=== PATIENT | female | born 1975 | race Two or more races ===

== ENCOUNTER 2020-03-07 07:17 | Emergency (ER) | payer MEDICARE ==
[~2020-03-07] VITALS: Ht 162.6 cm; Wt 104.3 kg
[2020-03-07 07:21] VITALS: BP 106/70
--- NOTE | 2020-03-07 07:26 | Emergency Room Report ---
History of Present Illness General Chief Complaint: Chest Pain Source: Patient Present Illness HPI The patient presents with substernal chest pain. Began this morning. It was severe and central chest radiating to her back. She had this 1 time before when she had some obstruction of her esophagus. She had taken some coconut water this morning and also some Tylenol with codeine for cramps. She is on her cycle at this time. She is scheduled to undergo hysterectomy next Friday. She has cramps and heavy bleeding. Paramedics treated her with one spray of nitroglycerin. The pain is now reduced to 2/10. She denies fevers, chills, sore throat, cough, nausea, vomiting or diarrhea. Last year she had an evaluation of her heart with a treadmill stress test. He said that there was some anomaly with the circulation in her heart however this was not done by angiogram. She says that the treadmill went well and she was told she did not have risk of cardiac injury. She denies exposure to COVID-19 positive contacts. No palpitations, dysuria, abdominal pain, shortness of breath, joint pain, rashes, depression, anxiety, visual changes, dizziness, headache. Allergies: Coded Allergies: No Known Allergies (Unverified , 03/07/20) COVID-19 Screening Contact w/high risk pt: No Experienced COVID-19 symptoms?: No COVID-19 Testing performed RESEARCH SPECIALIST: No Patient History Past Medical History: see triage record Past Surgical History: other - gastric sleeve surgery Social History: Denies: smoking, alcohol use, drug use Social History Narrative From home lives with her son and other relatives Last Menstrual Period: 03/05/2020 Reviewed Nursing Documentation: PMH: Agreed; PSxH: Agreed Nursing Documentation-PMH Past Medical History: No History, Except For Hx Asthma: Yes Review of Systems All Other Systems: negative except mentioned in HPI Physical Exam Vital Signs Date Time Temp Pulse Resp B/P (MAP) Pulse Ox O2 Delivery O2 Flow Rate FiO2 03/07/20 07:11 97.5 70 16 140/80 (100) 98 Room Air Sp02 EP Interpretation: reviewed, normal General Appearance: well appearing, no apparent distress, GCS 15 Head: normocephalic Eyes: bilateral eye normal inspection, bilateral eye PERRL, bilateral eye EOMI ENT: other - Wearing a mask Neck: supple Respiratory: lungs clear, normal breath sounds Cardiovascular #1: regular rate, rhythm, no edema Cardiovascular #2: 2+ radial (R) Gastrointestinal: normal inspection, normal bowel sounds, non tender, no mass, non-distended Musculoskeletal: back normal, normal range of motion, no calf tenderness, gait/station normal Neurologic: alert, oriented x3, grossly normal Psychiatric: mood/affect normal Skin: no rash, warm/dry Medical Decision Making Diagnostic Impression: Primary Impression: Chest pain ER Course Patient presents with substernal chest pain was severe until treated by EMS. Differential includes Prinzmetal angina, angina, acute myocardial infarction, pulmonary embolus, esophageal spasm, reflux esophagitis, thoracic aneurysm amongst others. Patient has few risk factors for cardiac disease. Also vital signs preclude pulmonary embolus. Lack of hypertension and marfanoid habitus makes aneurysm less likely. Evaluation with EKG and labs. Patient treated with Mylanta, and Pepcid. Patient placed on the manager cardiac cath. EKG sinus rhythm [address]-T wave changes. Chest x-ray normal no infi ltrates. Labs normal with normal troponin. Patient improved with treatment in the emergency department. She states that she had purchased Pepcid but had not taken any in the past. Discussed results with patient. Discussed treatment plan. No emergency at this time and patient improved. Patient stable for outpatient observation and treatment. Laboratory Tests Test 03/07/20 07:20 03/07/20 07:45 White Blood Count 6.4 K/UL (4.8-10.8) Red Blood Count 4.51 M/UL (4.20-5.40) Hemoglobin 11.2 G/DL (12.0-16.0) L Hematocrit 35.3 % (37.0-47.0) L Mean Corpuscular Volume 78 FL (80-99) L Mean Corpuscular Hemoglobin 24.7 PG (27.0-31.0) L Mean Corpuscular Hemoglobin Concent 31.6 G/DL (32.0-36.0) L Red Cell Distribution Width 13.2 % (11.6-14.8) Platelet Count 281 K/UL (150-450) Mean Platelet Volume 6.2 FL (6.5-10.1) L Neutrophils (%) (Auto) 56.6 % (45.0-75.0) Lymphocytes (%) (Auto) 29.8 % (20.0-45.0) Monocytes (%) (Auto) 8.0 % (1.0-10.0) Eosinophils (%) (Auto) 3.4 % (0.0-3.0) H Basophils (%) (Auto) 2.1 % (0.0-2.0) H Prothrombin Time 10.8 SEC (9.30-11.50) Prothrombin Time INR 1.0 (0.9-1.1) Activated Partial Thromboplast Time 27 SEC (23-33) Sodium Level 137 MMOL/L (136-145) Potassium Level 4.6 MMOL/L (3.5-5.1) Chloride Level 105 MMOL/L (98-107) Carbon Dioxide Level 24 MMOL/L (21-32) Anion Gap 8 mmol/L (5-15) Blood Urea Nitrogen 14 mg/dL (7-18) Creatinine 0.7 MG/DL (0.55-1.30) Estimated Glomerular Filtration Rate > 60 mL/min (>60) Glucose Level 97 MG/DL (74-106) Calcium Level 8.8 MG/DL (8.5-10.1) Total Bilirubin 0.4 MG/DL (0.2-1.0) Aspartate Amino Transferase (AST) 66 U/L (15-37) H Alanine Aminotransferase (ALT) 32 U/L (12-78) Alkaline Phosphatase 99 U/L (46-116) Total Creatine Kinase 143 U/L (26-308) Troponin I 0.000 ng/mL (0.000-0.056) Pro-B-Type Natriuretic Peptide 58 pg/mL (0-125) Total Protein 6.7 G/DL (6.4-8.2) Albumin 3.3 G/DL (3.4-5.0) L Globulin 3.4 g/dL Albumin/Globulin Ratio 1.0 (1.0-2.7) Urine Color Yellow Urine Appearance Slightly cloudy Urine pH 6 (4.5-8.0) Urine Specific [place] 1.015 (1.005-1.035) Urine Protein 1+ (NEGATIVE) H Urine Glucose (UA) Negative (NEGATIVE) Urine Ketones 1+ (NEGATIVE) H Urine Blood 5+ (NEGATIVE) H Urine Nitrite Negative (NEGATIVE) Urine Bilirubin Negative (NEGATIVE) Urine Urobilinogen Normal MG/DL (0.0-1.0) Urine Leukocyte Esterase 1+ (NEGATIVE) H Urine RBC 30-40 /HPF (0 - 2) H Urine WBC 2-4 /HPF (0 - 2) Urine Squamous Epithelial Cells Few /LPF (NONE/OCC) Urine Bacteria Few /HPF (NONE) Urine Mucus Moderate /LPF (NONE/OCC) H Urine HCG, Qualitative Negative (NEGATIVE) EKG Diagnostic Results Rate: normal Rhythm: NSR ST Segments: no acute changes Rhythm Strip Diag. Results EP Interpretation: yes Rhythm: NSR, no PVC's, no ectopy Chest X-Ray Diagnostic Results Chest X-Ray Diagnostic Results : Chest X-Ray Ordered: Yes # of Views/Limited/Complete: 1 View Indication: Chest Pain EP Interpretation: Yes Interpretation: no consolidation, no effusion, no pneumothorax Impression: No acute disease Electronically Signed by: Electronically signed by Noel Mejía MD Last Vital Signs Date Time Temp Pulse Resp B/P (MAP) Pulse Ox O2 Delivery O2 Flow Rate FiO2 03/07/20 09:41 97.5 68 15 106/70 100 Room Air Status: improved Disposition: HOME, SELF-CARE Condition: Improved Scripts Mag Hydrox/Aluminum Hyd/Simeth (Mylanta Maximum Strength Liq) 355 Ml Oral.susp 30 ML PO Q6HR, #240 ML Prov: Noel Mejía MD 03/07/20 Famotidine* (Pepcid 20mg tablet*) 20 Mg Tablet 20 MG ORAL DAILY, #30 TAB 0 Refills Prov: Noel Mejía MD 03/07/20 Noel Mejía MD Mar 07, 2020 07:26
[2020-03-07] MEDS ORDERED: Mylanta II UD 30ml ORAL ONE (07:30)
--- NOTE | 2020-03-07 07:35 | NUR ---
ED Nurse Note: Collected blood specimen then sent.
--- NOTE | 2020-03-07 07:40 | NUR ---
ED Nurse Note: Patient from home and was brought in by [facility] due to CP with dizziness that radiates to her left shoulder and back started while she was cooking this morning. Pt states pressure like pain on her chest that was relived by NTG x1 given by EMS en route. AAO x4, ambulatory with non labored breathing. Calm and speaks in clear sentences.
[2020-03-07 07:43] LABS: BASOPHILS % (AUTO) 2.1 % (0.0-2.0); EOSINOPHILS % (AUTO) 3.4 % (0.0-3.0); HEMATOCRIT 35.3 % (37.0-47.0); HEMOGLOBIN 11.2 G/DL (12.0-16.0); LYMPHOCYTES % (AUTO) 29.8 % (20.0-45.0); MEAN CORPUSCULAR VOLUME 78 FL (80-99); NEUTROPHILS % (AUTO) 56.6 % (45.0-75.0); PLATELET COUNT 281 K/UL (150-450); RED BLOOD COUNT 4.51 M/UL (4.20-5.40); RED CELL DISTRIBUTION WIDTH 13.2 % (11.6-14.8); WHITE BLOOD COUNT 6.4 K/UL (4.8-10.8)
--- NOTE | 2020-03-07 07:56 | NUR ---
ED Nurse Note: Collected urine then sent.
[2020-03-07 08:05] LABS: ANION GAP 8 mmol/L (5-15); BLOOD UREA NITROGEN 14 mg/dL (7-18); CALCIUM 8.8 MG/DL (8.5-10.1); CARBON DIOXIDE 24 MMOL/L (21-32); CHLORIDE 105 MMOL/L (98-107); CREATININE 0.7 MG/DL (0.55-1.30); POTASSIUM 4.6 MMOL/L (3.5-5.1); SODIUM 137 MMOL/L (136-145)
[2020-03-07 08:16] LABS: ALANINE AMINOTRANSFERASE 32 U/L (12-78); ALBUMIN 3.3 G/DL (3.4-5.0); ALKALINE PHOSPHATASE 99 U/L (46-116); ASPARTATE AMINO TRANSFERASE 66 U/L (15-37); BILIRUBIN,TOTAL 0.4 MG/DL (0.2-1.0); CREATINE KINASE 143 U/L (26-308)
[2020-03-07 08:23] LABS: APPEARANCE,URINE SLIGHTLY CLOUDY; BILIRUBIN, URINE NEGATIVE (NEGATIVE); GLUCOSE, URINE (UA) NEGATIVE (NEGATIVE); KETONES,URINE 1+ (NEGATIVE); LEUKOCYTE ESTERASE ,URINE 1+ (NEGATIVE); NITRITE,URINE NEGATIVE (NEGATIVE); PH,URINE 6 (4.5-8.0); PROTEIN,URINE 1+ (NEGATIVE); UROBILINOGEN,URINE NORMAL MG/DL (0.0-1.0)
[2020-03-07 08:31] LABS: COLOR,URINE YELLOW
[2020-03-07 09:25] VITALS: BP 115/76
[2020-03-07] MEDS ORDERED: FAMOTIDINE20 MG ORAL (09:31)
[2020-03-07] MEDS ORDERED: MYLANTA MAXIMU355 ML PO (09:31)
[2020-03-07 09:41] VITALS: BP 106/70
--- NOTE | 2020-03-07 09:41 | NUR ---
ER DISCHARGE NOTE: Patient is cleared to be discharged per ERMD, pt is aox4, on room air, with stable vital signs. pt was given dc and prescription instructions, pt was able to verbalize understanding, pt id band and iv site removed without complications. pt is able to ambulate with steady gait. pt took all belongings.
--- NOTE | 2020-03-07 13:43 | Cardiology Report ---
APPROVED REPORT EKG Measurement Heart [id number] <Conclusion> Normal sinus rhythm Incomplete right bundle branch block Possible Anterior infarct, age undetermined Abnormal ECG
--- NOTE | 2020-03-07 15:10 | Diagnostic Imaging Report ---
. Indication: Reason For Exam: CP Technique: Single AP view of the chest. Comparison: None. Findings: The cardiomediastinal silhouette is within normal limits. There is no focal consolidation, pneumothorax or pleural effusion. Osseous structures demonstrate no acute abnormality. IMPRESSION: No radiographic evidence of acute cardiopulmonary process..
== END 2020-03-07 09:04 | disposition home or self-care (01) ==
LOC: EDBD 07:17 → EMR 07:30
DX: R07.9 Chest pain, unspecified (principal)
CPT/HCPCS: 36415; 71045; 80053; 81003; 81025; 82550; 83880; 84484; 85025; 85610; 85730; 93005; 96374; 99284; S0028